=== PATIENT | male | born 1960 | race Caucasian/White ===

== ENCOUNTER 2019-05-24 08:09 | Observation (INO) ==
[2019-05-24] MEDS ORDERED: ONDANSETRON 4 MG/2 ML VIAL IV STA (08:10)
[2019-05-24] MEDS ORDERED: ONDANSETRON 4 MG/2 ML VIAL ONE (08:12)
[2019-05-24] MEDS ORDERED: SODIUM CHLORIDE 0.9% 1,000 ML IV STA (08:21)
[2019-05-24] MEDS ORDERED: LORazepam 2 MG/1 ML VIAL IV STA ×2 (08:21→09:07)
[2019-05-24] MEDS ORDERED: methylPREDNISolone SOD SUC 125 MG/2 ML VIAL IV STA (08:22)
[2019-05-24 08:26] LABS: Basophils # 0.1 10*3/uL (0.0-0.2); Basophils % 0.5 % (0.0-0.8); Eosinophils # 0.1 10*3/uL (0.0-0.87); Eosinophils % 0.9 % (0.00-10.9); Hematocrit 50.1 VOL% (42.0-52.0); Immature Granulocytes % 0.3 %; Immature Granulocytes Absolute 0.03 #; Lymphocytes # 1.9 10*3/uL (1.4-4.0); Lymphocytes % 18.2 % (21.2-54.2); Mean Corpuscular HGB Conc 33.9 GM/DL (32-36); Mean Corpuscular Volume 91.1 FL (87-102); Mean Platelet Volume 10.3 FL (9.6-12.0); Monocytes % 7.2 % (1.7-12.7); Neutrophils % 72.9 % (38.7-73.9); Platelet Count 245 T/CUMM (130-400); Red Cell Distribution Width 12.3 % (9.3-17.3); White Blood Count 10.4 T/CUMM (4-12)
[2019-05-24 08:52] LABS: Albumin 3.1 G/DL (3.4-5.0); Bilirubin,Total 0.5 MG/DL (0.2-1.0); Calcium 8.2 MG/DL (8.5-10.1); Osmolality,Calculated 283.7 MOS/KG (273-304); Total Protein 6.6 G/DL (6.4-8.3)
[2019-05-24] MEDS ORDERED: LORazepam 2 MG/1 ML VIAL IV PRN (13:30)
[2019-05-24] MEDS ORDERED: tiZANidine 4 MG TABLET PO PRN (14:09)
[2019-05-24] MEDS ORDERED: ONDANSETRON 4 MG/2 ML VIAL IV PRN (14:09)
[2019-05-24] MEDS: SODIUM CHLORIDE 0.9% 1,000 ML IV SCH (15:00)
[2019-05-24] MEDS: DOCUSATE SODIUM 100 MG CAPSULE PO SCH (21:01)
[2019-05-25] MEDS: SODIUM CHLORIDE 0.9% 1,000 ML IV SCH ×4 (08:31→22:20)
[2019-05-25] MEDS: NEBIVOLOL 5 MG TABLET PO SCH (08:32)
[2019-05-25] MEDS: VENLAFAXINE 75 MG TABLET PO SCH (08:32)
[2019-05-25] MEDS: DOCUSATE SODIUM 100 MG CAPSULE PO SCH ×2 (08:32→20:00)
[2019-05-25] MEDS: hydroCHLOROthiazide 25 MG TABLET PO SCH (08:32)
[2019-05-25] MEDS: TAMSULOSIN 0.4 MG CAPSULE PO SCH (08:32)
[2019-05-25] MEDS: PANTOPRAZOLE 40 MG TABLET PO SCH (08:33)
[2019-05-25] MEDS: TESTOSTERONE TOP SCH (08:35)
[2019-05-25] MEDS ORDERED: clonazePAM 0.5 MG TABLET PO SCH (09:00)
[2019-05-25] MEDS ORDERED: PROMETHAZINE INJ 12.5 MG in SODIUM CHLORIDE 0.9% 50 ML IV PRN (11:05)
[2019-05-25] MEDS: ONDANSETRON 4 MG/2 ML VIAL IV SCH ×3 (13:32→23:33)
[2019-05-25] MEDS: ACYCLOVIR INJ 250 MG in SODIUM CHLORIDE 0.9% 100 ML IV SCH ×2 (13:32→19:59)
[2019-05-25] MEDS: DEXAMETHASONE 4 MG/1 ML VIAL IV SCH ×2 (13:32→19:58)
[2019-05-25] MEDS: DIAZEPAM 10 MG/2 ML SYRINGE IV SCH ×3 (13:33→23:33)
[2019-05-25] MEDS ORDERED: PANTOPRAZOLE 40 MG TABLET PO ONE (20:50)
[2019-05-26] MEDS: DEXAMETHASONE 4 MG/1 ML VIAL IV SCH ×3 (03:35→20:16)
[2019-05-26] MEDS: ONDANSETRON 4 MG/2 ML VIAL IV SCH ×4 (05:08→23:01)
[2019-05-26] MEDS: DIAZEPAM 10 MG/2 ML SYRINGE IV SCH ×4 (05:08→22:57)
[2019-05-26] MEDS: SODIUM CHLORIDE 0.9% 1,000 ML IV SCH ×2 (06:50→17:51)
[2019-05-26] MEDS: hydroCHLOROthiazide 25 MG TABLET PO SCH (09:17)
[2019-05-26] MEDS: valACYclovir 500 MG TABLET PO SCH ×2 (09:17→20:15)
[2019-05-26] MEDS: ACETAMINOPHEN 325 MG TABLET PO PRN ×2 (09:18→20:15)
[2019-05-26] MEDS: VENLAFAXINE 75 MG TABLET PO SCH (09:18)
[2019-05-26] MEDS: PANTOPRAZOLE 40 MG TABLET PO SCH (09:18)
[2019-05-26] MEDS: NEBIVOLOL 5 MG TABLET PO SCH (09:18)
[2019-05-26] MEDS: TAMSULOSIN 0.4 MG CAPSULE PO SCH (09:18)
[2019-05-26] MEDS: DOCUSATE SODIUM 100 MG CAPSULE PO SCH ×2 (09:19→20:15)
[2019-05-26] MEDS: TESTOSTERONE TOP SCH (09:19)
[2019-05-27] MEDS: DEXAMETHASONE 4 MG/1 ML VIAL IV SCH ×3 (02:32→20:23)
[2019-05-27] MEDS: SODIUM CHLORIDE 0.9% 1,000 ML IV SCH ×4 (03:35→23:30)
[2019-05-27] MEDS: ONDANSETRON 4 MG/2 ML VIAL IV SCH ×4 (06:19→23:22)
[2019-05-27] MEDS: DIAZEPAM 10 MG/2 ML SYRINGE IV SCH ×4 (06:21→23:19)
[2019-05-27] MEDS: NEBIVOLOL 5 MG TABLET PO SCH (08:47)
[2019-05-27] MEDS: VENLAFAXINE 75 MG TABLET PO SCH (08:47)
[2019-05-27] MEDS: TAMSULOSIN 0.4 MG CAPSULE PO SCH (08:47)
[2019-05-27] MEDS: TESTOSTERONE TOP SCH (08:48)
[2019-05-27] MEDS: valACYclovir 500 MG TABLET PO SCH ×2 (08:48→20:26)
[2019-05-27] MEDS: DOCUSATE SODIUM 100 MG CAPSULE PO SCH ×2 (08:49→20:26)
[2019-05-27] MEDS: hydroCHLOROthiazide 25 MG TABLET PO SCH (08:49)
[2019-05-27] MEDS: PANTOPRAZOLE 40 MG TABLET PO SCH (08:49)
[2019-05-27] MEDS: ACETAMINOPHEN 325 MG TABLET PO PRN ×2 (15:05→23:29)
[2019-05-28] MEDS: DEXAMETHASONE 4 MG/1 ML VIAL IV SCH ×2 (03:28→15:39)
[2019-05-28] MEDS: DIAZEPAM 10 MG/2 ML SYRINGE IV SCH ×2 (04:38→15:39)
[2019-05-28] MEDS: ONDANSETRON 4 MG/2 ML VIAL IV SCH ×3 (04:41→17:51)
[2019-05-28 05:12] LABS: Basophils % 0.1 % (0.0-0.8); Hematocrit 51.6 VOL% (42.0-52.0); Hemoglobin 17.6 GM/DL (14.0-18.0); Immature Granulocytes Absolute 0.14 #; Lymphocytes # 1.3 10*3/uL (1.4-4.0); Lymphocytes % 8.7 % (21.2-54.2); Mean Corpuscular HGB Conc 34.1 GM/DL (32-36); Mean Corpuscular Volume 90.2 FL (87-102); Mean Platelet Volume 10.7 FL (9.6-12.0); Monocytes % 4.5 % (1.7-12.7); Neutrophils % 85.7 % (38.7-73.9); Platelet Count 281 T/CUMM (130-400); Red Blood Count 5.72 MC/CUMM (3.8-5.5); Red Cell Distribution Width 12.2 % (9.3-17.3); White Blood Count 14.4 T/CUMM (4-12)
[2019-05-28 05:42] LABS: Albumin 2.5 G/DL (3.4-5.0); Bilirubin,Total 0.5 MG/DL (0.2-1.0); Calcium 7.8 MG/DL (8.5-10.1); Osmolality,Calculated 286.3 MOS/KG (273-304); Total Protein 5.7 G/DL (6.4-8.3)
[2019-05-28] MEDS: hydroCHLOROthiazide 25 MG TABLET PO SCH (09:35)
[2019-05-28] MEDS: DOCUSATE SODIUM 100 MG CAPSULE PO SCH (09:35)
[2019-05-28] MEDS: PANTOPRAZOLE 40 MG TABLET PO SCH (09:35)
[2019-05-28] MEDS: valACYclovir 500 MG TABLET PO SCH (09:35)
[2019-05-28] MEDS: NEBIVOLOL 5 MG TABLET PO SCH (09:35)
[2019-05-28] MEDS: VENLAFAXINE 75 MG TABLET PO SCH (09:35)
[2019-05-28] MEDS: TAMSULOSIN 0.4 MG CAPSULE PO SCH (09:35)
[2019-05-28] MEDS: TESTOSTERONE TOP SCH (10:01)
[2019-05-28] MEDS: SODIUM CHLORIDE 0.9% 1,000 ML IV SCH (15:29)
[2019-05-28 16:41] VITALS: BP 143/77
== END 2019-05-28 17:50 | disposition home or self-care (01) ==
LOC: N.EDINP 08:09 → N.ED 08:09 → N.2E 13:13
PROVIDERS: ADMIT Family Medicine; ATTEND Family Medicine